=== PATIENT | female | born 1945 | race Hispanic/Latino ===

== ENCOUNTER 2016-04-21 21:46 | Inpatient (IN) | payer OTHER, BC ==
[2016-04-21 22:16] VITALS: BMI 25.3
[2016-04-21] MEDS ORDERED: Albuterol-Ipratrop 3 mg / 0.5 (3 ml) UD IH PRN (22:21)
[2016-04-21] MEDS ORDERED: Influenza Vaccine 45 MCG/0.5 ml IM ONE (23:04)
[2016-04-21] MEDS ORDERED: Pneumococcal 23-Valent Vaccine IM ONE (23:04)
[2016-04-22] MEDS: Albuterol-Ipratrop 3 mg / 0.5 (3 ml) UD IH SCH ×4 (01:17→20:17)
[2016-04-22] MEDS: cefTRIAXone 1 gm 100 ML IVPB SCH (05:01)
[2016-04-22] MEDS: Azithromycin 500MG/NS 250ml 250 ML IVPB SCH (05:02)
[2016-04-22] MEDS: Pantoprazole 40 mg EC Tab PO SCH (05:03)
[2016-04-22] MEDS: MethylPREDNISolone 40 mg Vial IVP SCH ×2 (05:03→17:47)
[2016-04-22] MEDS: Levothyroxine 75 MCG TAB PO SCH (05:03)
[2016-04-22] MEDS: Metoprolol Succinate 50 mg XL Tab PO SCH (07:33)
[2016-04-23] MEDS: Pantoprazole 40 mg EC Tab PO SCH (05:22)
[2016-04-23] MEDS: cefTRIAXone 1 gm 100 ML IVPB SCH (05:22)
[2016-04-23] MEDS: MethylPREDNISolone 40 mg Vial IVP SCH ×2 (05:23→17:20)
[2016-04-23] MEDS: Levothyroxine 75 MCG TAB PO SCH (05:24)
[2016-04-23] MEDS: Azithromycin 500MG/NS 250ml 250 ML IVPB SCH (05:24)
[2016-04-23 06:18] VITALS: RESP 18
[2016-04-23] MEDS: Metoprolol Succinate 50 mg XL Tab PO SCH (08:35)
[2016-04-23] MEDS: Albuterol-Ipratrop 3 mg / 0.5 (3 ml) UD IH SCH ×3 (08:56→20:38)
[2016-04-24] MEDS: Albuterol-Ipratrop 3 mg / 0.5 (3 ml) UD IH SCH ×5 (01:35→20:10)
--- NOTE | 2016-04-24 02:26 | HP ---
HISTORY OF PRESENT ILLNESS: The patient is a 70-year-old who came to Emergency Room on 04/15 with ac [place] shortness of breath, cough, and congestion. While she was in the ER, she had temperature of 103. Blood culture and urine cultures were sent. She had CT scan of the chest done on 04/15 that showed she has alveolar infiltrate in the superior segment of left lower lobe consistent with pneumonia. T he patient was started on IV Zithromax and Rocephin. She responded well. She has respiratory insuff iciency. She was hypoxic on admission. ICU information security consultant was called and they recommended for high flow oxygen that was started. She responded well to that, so she remained in telemetry. She needed furt her antibiotics, so transferred to TCU to complete her course of antibiotic and to get physical thera py also. PAST MEDICAL HISTORY: Significant for: 1. Chronic AFib. 2. Status post aortic valve replacement. 3. History of brain aneurysm. 4. History of congestive heart failure. 5. History of triple bypass in 2006. 6. Hypertension. 7. Aortic valve replacement. ALLERGIES: She is not allergic to any medications. MEDICATIONS AT HOME: She is on: 1. Metoprolol 50 mg daily. 2. Levothyroxine 25 mcg daily. 3. Amlodipine 5 mg daily. 4. Ambien 10 mg daily. 5. Simvastatin 40 mg daily. 6. Nortriptyline 10 mg daily. 7. Aspirin 81 daily. SOCIAL HISTORY: She has history of smoking in the past. Denies drug or alcohol use. REVIEW OF SYSTEMS: Significant for scanty cough and congestion, but not much shortness of breath. S he states she was able to ambulate and do physical therapy without getting short of breath. PHYSICAL EXAMINATION: GENERAL: She is awake and alert, communicative. VITAL SIGNS: She is afebrile, pulse 87, respirations 18, blood pressure 135/85. LUNGS: Bilateral few soft crackle in the left mid lung region posteriorly. HEART: S1, S2 audible, irregular rate control. ABDOMEN: Soft, nontender, no rebound, no guarding. NEUROLOGIC: The patient is awake and alert, communicative, ambulatory. ASSESSMENT: 1. Community-acquired pneumonia. 2. Hypertension. 3. Chronic atrial fibrillation. 4. Status post aortic valve replacement. 5. History of depression. 6. History of chronic obstructive pulmonary disease. 7. Hypothyroidism. PLAN: Currently, the patient is on Zithromax and Rocephin. I will discontinue her IV steroids, [place] ge it to p.o. prednisone and we will follow up CBC, CMP, PT/INR in a.m. Nae Rogers MD cc: [id number] TT: 04/24/2016 02:25:47 in
[2016-04-24] MEDS: cefTRIAXone 1 gm 100 ML IVPB SCH (05:02)
[2016-04-24] MEDS: Azithromycin 500MG/NS 250ml 250 ML IVPB SCH (05:03)
[2016-04-24] MEDS: Levothyroxine 75 MCG TAB PO SCH (05:04)
[2016-04-24] MEDS: Pantoprazole 40 mg EC Tab PO SCH (05:14)
[2016-04-24 07:16] LABS: ADD MANUAL DIFF? NO
[2016-04-24 07:19] LABS: BASO # 0.01 K/mm3 (0.0-2.0); BASO % 0.1 % (0.0-3.0); GRAN # 14.96 (1.4-6.5); GRAN % 91.8 % (50.0-68.0); HEMATOCRIT 36.7 % (36.0-48.0); LYMPH # 0.6 (1.2-3.4); LYMPH % 3.9 % (22.0-35.0); MEAN CORPUSCULAR HEMOGLOBIN 28.9 pg (25.0-35.0); MEAN CORPUSCULAR HGB CONC 32.2 g/dl (31.0-37.0); MEAN PLATELET VOLUME 9.4 fl (7.0-11.0); MONO # 0.7 (0.1-0.6); MONO % 4.2 % (1.0-6.0); PLATELET COUNT 385 10^3/uL (120.0-450.0); WHITE BLOOD COUNT 16.3 10^3/ul (4.5-11.0)
[2016-04-24 07:28] LABS: INR 2.72 (0.93-1.08)
[2016-04-24 07:46] LABS: ALKALINE PHOSPHATASE 52 U/L (38-133); ALT/SGPT 90 U/L (7-56); AST/SGOT 56 U/L (15-39); BILIRUBIN,TOTAL 0.5 mg/dL (0.2-1.3); BLOOD UREA NITROGEN 29 mg/dL (7-21); CALCIUM 8.6 mg/dL (8.4-10.5); CARBON DIOXIDE 33 mmol/L (21-33); CHLORIDE 98 mmol/L (95-110); GFR AFRICAN-AMERICAN > 60; GLUCOSE,RANDOM 124 mg/dL (70-110); POTASSIUM 4.8 mmol/L (3.6-5.0); SODIUM 138 mmol/L (132-148); TOTAL PROTEIN 6.2 g/dL (5.8-8.3)
[2016-04-24] MEDS: Metoprolol Succinate 50 mg XL Tab PO SCH (08:46)
--- NOTE | 2016-04-24 18:20 | PN ---
DATE: 04/24/2016 The patient is a 70-year-old, seen and examined, doing great. She states she has minimal cough, no s hortness of breath on exertion. VITAL SIGNS: She is afebrile, pulse 78, respirations 18, blood pressure 152/74. LUNGS: Bilateral good airflow, no rhonchi or crackle. HEART: S1, S2 audible, no murmur. ABDOMEN: Soft, nontender, no rebound, no guarding. NEUROLOGICALLY: The patient is awake and alert, communicative, ambulatory without getting shortness of breath. ASSESSMENT AND PLAN: 1. Community-acquired pneumonia. 2. Chronic obstructive pulmonary disease. 3. Chronic atrial fibrillation. 4. History of depression. 5. History of aortic valve replacement. PLAN: I will cut down her prednisone 20 daily, change her Zithromax to p.o. and I will discontinue h er Hep-Lock, and if she remains stable she will be discharged home on Thursday. Nae Rogers MD cc: [id number] TT: 04/24/2016 18:20:11 Confirmation # [id number] Dictation # [id number] jn
[2016-04-24] MEDS: Cefpodoxime (Vantin) 200 mg Tab PO SCH (22:36)
[2016-04-25] MEDS: Levothyroxine 75 MCG TAB PO SCH (06:26)
[2016-04-25] MEDS: Pantoprazole 40 mg EC Tab PO SCH (06:26)
[2016-04-25] MEDS: Albuterol-Ipratrop 3 mg / 0.5 (3 ml) UD IH SCH ×3 (07:47→20:11)
[2016-04-25] MEDS: Metoprolol Succinate 50 mg XL Tab PO SCH (08:14)
[2016-04-25] MEDS: Cefpodoxime (Vantin) 200 mg Tab PO SCH ×2 (10:59→21:32)
--- NOTE | 2016-04-25 19:43 | PN ---
DATE: 04/25/2016 The patient is 70 years old, seen and examined, sitting in chair, comfortable, not in any distress. No fever, no chills, no nausea, no vomiting, no diarrhea. OBJECTIVE: VITAL SIGNS: She is afebrile, pulse , respirations 18, blood pressure . LUNGS: Bilateral good airflow, no rhonchi or crackle. HEART: S1, S2 audible. No murmur. ABDOMEN: Soft, nontender. No rebound, no guarding. NEUROLOGIC: The patient is awake and alert, communicative. Moves all extremities, ambulatory. LABORATORY DATA: There is no new lab available today; however, yesterday PT was 29.4, INR . ASSESSMENT: 1. Status post community-acquired pneumonia. 2. Status post respiratory insufficiency. 3. Hypertension. 4. Hyperlipidemia. 5. Chronic atrial fibrillation. 6. Aortic valve replacement. 7. Chronic obstructive pulmonary disease. PLAN: Currently, the patient is on p.o. steroids and p.o. antibiotics. She is doing well. If she c ontinues to be stable she wanted to be discharged tomorrow. Nae Rogers MD cc: [id number] TT: 04/25/2016 19:43:19 Confirmation # [id number] Dictation # [id number]
[2016-04-26] MEDS: Albuterol-Ipratrop 3 mg / 0.5 (3 ml) UD IH SCH ×2 (01:25→07:25)
[2016-04-26] MEDS: Pantoprazole 40 mg EC Tab PO SCH (05:44)
[2016-04-26] MEDS: Levothyroxine 75 MCG TAB PO SCH (05:44)
[2016-04-26] MEDS: Metoprolol Succinate 50 mg XL Tab PO SCH (08:10)
[2016-04-26] MEDS: Cefpodoxime (Vantin) 200 mg Tab PO SCH (10:01)
[2016-04-26 10:02] VITALS: PULSE 85
[2016-04-26] MEDS ORDERED: Furosemide 40 mg/5 mL Oral Soln UD PO STA (11:33)
[2016-04-26 12:01] VITALS: TEMP 97.6; O2SAT 98
[2016-04-26 12:30] VITALS: BP 129/81
--- NOTE | 2016-04-26 22:56 | DS ---
The patient is 70-year-old seen and examined, doing well. No chest pain, no shortness of breath. No nausea, vomiting. No diarrhea, no fever, no chills. VITAL SIGNS: She is afebrile, pulse 85, respirations 18, blood pressure 122/84. LUNGS: Bilateral good airflow, no rhonchi or crackle. HEART: S1, S2 audible. ABDOMEN: Soft, nontender, no rebound, no guarding. NEUROLOGICALLY: She is awake and alert, communicative, ambulatory. ASSESSMENT AND PLAN: 1. Status post community-acquired pneumonia. 2. Left lower lobe superior segment infiltrate. 3. Status post respiratory insufficiency. 4. Hypertension. 5. Chronic atrial fibrillation. 6. Hyperlipidemia. 7. Status post aortic valve replacement. 8. Chronic obstructive pulmonary disease. PLAN: The patient is being discharged home today. She is doing well. She is being discharged on: 1. Amlodipine 2.5 daily. 2. She is on Ambien 5 mg at bedtime. 3. Coumadin 2 mg alternating with 1 mg according as recommended. 4. Spiriva 1 puff daily. 5. Simvastatin 40 mg daily, Pamelor 110 mg daily, metoprolol 50 mg daily, levothyroxine 75 mg daily, metoprolol 50 mg b.i.d., levothyroxine 75 mcg daily, prednisone 20 mg daily for 5 days, and she is g oing to use Ceftin 500 twice a day for 3 more days. She will follow with Dr. Rodrigues as outpatient for followup. Nae Rogers MD cc: [id number] TT: 04/26/2016 22:54:54 [email or web address]
== END 2016-04-26 13:45 | disposition home or self-care (01) | DRG 194 ==
LOC: TRCU 21:46
PROVIDERS: ADMIT Internal Medicine; ATTEND Internal Medicine
PROC: F07Z9ZZ Gait Training/Functional Ambulation Treatment (ICD-10-PCS; principal; 2016-04-22)
PROC: F07M6ZZ Therapeutic Exercise Treatment of Musculoskeletal System - Whole Body (ICD-10-PCS; 2016-04-22)
PROC: F08Z0ZZ Bathing/Showering Techniques Treatment (ICD-10-PCS; 2016-04-24)
PROC: F08Z1ZZ Dressing Techniques Treatment (ICD-10-PCS; 2016-04-24)
PROC: F08Z2ZZ Grooming/Personal Hygiene Treatment (ICD-10-PCS; 2016-04-24)
PROC: F08Z4ZZ Home Management Treatment (ICD-10-PCS; 2016-04-24)
DX: J18.9 Pneumonia, unspecified organism (principal); J44.0 Chronic obstructive pulmonary disease with (acute) lower respiratory infection; I50.9 Heart failure, unspecified; I48.2 Chronic atrial fibrillation; Z95.2 Presence of prosthetic heart valve; Z95.1 Presence of aortocoronary bypass graft; I10 Essential (primary) hypertension; R09.02 Hypoxemia; E03.9 Hypothyroidism, unspecified; E78.5 Hyperlipidemia, unspecified; Z79.82 Long term (current) use of aspirin; Z79.899 Other long term (current) drug therapy; Z87.891 Personal history of nicotine dependence

== ENCOUNTER 2018-03-29 08:16 | Outpatient (CLI) | payer MEDICARE, BC | END 2018-03-29 08:17 | disposition home or self-care (01) | LOC: RAD 08:16 ==

== ENCOUNTER 2018-04-28 10:05 | Outpatient (CLI) | payer MEDICARE, BC | END 2018-04-28 10:06 | disposition home or self-care (01) | LOC: RAD 10:05 ==